=== PATIENT | male | born 2000 | race Caucasian/White ===

== ENCOUNTER 2019-09-22 00:04 | Emergency (ER) | payer OTHER ==
[2019-09-22] MEDS ORDERED: ONDANSETRON HCL INJ/PF 4 MG/2 ML SDV ONE (00:20)
[2019-09-22] MEDS ORDERED: NORMAL SALINE 1000 ML 1,000 ML IV ONE (00:29)
[2019-09-22] MEDS ORDERED: ONDANSETRON HCL INJ/PF 4 MG/2 ML SDV IV ONE (00:29)
--- NOTE | 2019-09-22 00:31 | ER Document Report ---
ED General - General Stated Complaint: ETOH Time Seen by Provider: 09/22/19 00:24 Notes: Patient is a 29-year-old male that comes emergency department for chief complain t of alcohol intoxication and subsequent vomiting. Patient reportedly drinks one half of a bottle of liquor which was 100 proof, afterwards he vomited multiple times in the bathroom before EMS was called and patient was brought to the emergency department. Patient states he still feels slightly nauseated, he was given 4 mg of Zofran IV. He denies recreational drugs, he denies any prescribed any medications, he denies any past medical history. His is with him at bedside, sober, states that he did drink heavily but he does not use recreational drugs, he did not have any fall injury, she denies any symptoms other than him vomiting. Patient is cooperative and alert. - Related Data Allergies/Adverse Reactions: No Known Allergies Allergy (Verified 09/22/19 05:38) Past Medical History - General Information source: Patient, Relative - Social History Smoking Status: Never Smoker Frequency of alcohol use: Social Drug Abuse: None Lives with: Family Family History: Reviewed & Not Pertinent - Medical History Medical History: Negative Surgical Hx: Negative - Immunizations Immunizations up to date: Yes Hx Diphtheria, Pertussis, Tetanus Vaccination: Yes Review of Systems - Review of Systems Constitutional: No symptoms reported EENT: No symptoms reported Cardiovascular: No symptoms reported Respiratory: No symptoms reported Gastrointestinal: See HPI Genitourinary: No symptoms reported Male Genitourinary: No symptoms reported Musculoskeletal: No symptoms reported Skin: No symptoms reported Hematologic/Lymphatic: No symptoms reported Neurological/Psychological: See HPI Physical Exam - Vital signs Vitals: Pulse Resp BP Pulse Ox 79 16 104/69 100 09/22/19 00:36 09/22/19 00:36 09/22/19 00:36 09/22/19 00:36 - Notes Notes: GENERAL: Awake, appears intoxicated, sluggish, slurred words, laughing HEAD: Normocephalic, atraumatic. EYES: Pupils equal, round, and reactive to light. Extraocular movements intact. ENT: Oral mucosa dry, tongue midline. Oropharynx unremarkable. Airway patent. NECK: Full range of motion. Supple. Trachea midline. LUNGS: Clear to auscultation bilaterally, no wheezes, rales, or rhonchi. No respiratory distress. HEART: Regular rate and rhythm. No murmur ABDOMEN: Soft, non-tender. Non-distended. Bowel sounds present in all 4 quadra nts. GENITOURINARY: Deferred EXTREMITIES: Moves all 4 extremities spontaneously. No edema, normal radial and dorsalis pedis pulses bilaterally. No cyanosis. BACK: no cervical, thoracic, lumbar midline tenderness. No saddle anesthesia, normal distal neurovascular exam. Moves all extremities in full range of motion. NEUROLOGICAL: Alert and oriented x3. Normal speech. Cranial nerves II through XII grossly intact. PSYCH: Laughing silly mood SKIN: Slightly flushed Course - Re-evaluation Re-evalutation: Patient clearly intoxicated, slurring his words, laughing frequently. Unsteady on his feet. Abdomen is actually benign, physical examination is benign with no signs of trauma, vital signs unremarkable. BMP shows unremarkable glucose, shows low bicarbonate, patient being given IV fluids. He has been given Zofran. On reevaluation patient states he feels much better. He is still clinically intoxicated and unsteady however. He will be monitored until he is sober enough to ambulate without difficulty and be safe to discharge home. His states she will gladly come back for him when he is ready. Patient given famotidine p.o., tolerated this without any difficulty, tolerated fluids. - Vital Signs Vital signs: Temp Pulse Resp BP Pulse Ox 97.9 F 94 14 101/42 L 96 09/22/19 05:46 09/22/19 05:46 09/22/19 05:46 09/22/19 05:46 09/22/19 05:46 - Laboratory Result Diagrams: 09/22/19 00:30 Laboratory results interpreted by me: 09/22/19 00:30 Carbon Dioxide 17 L BUN 21 H Discharge - Discharge Clinical Impression: Dehydration Alcohol intoxication Qualifiers: Complication of substance-induced condition: with unspecified complication Qu alified Code(s): F10.929 - Alcohol use, unspecified with intoxication, unspecified Vomiting Qualifiers: Vomiting type: unspecified Vomiting Intractability: non-intractable Nausea presence: with nausea Qualified Code(s): R11.2 - Nausea with vomiting, unspecified Condition: Stable Disposition: HOME, SELF-CARE Additional Instructions: Avoid drinking alcohol to intoxication. Drink plenty of fluids, start with bland diet, take Zofran if needed for nausea, take famotidine as prescribed for the next several days. Follow-up with primary care. Return for any concerning symptoms including return vomiting, severe abdominal pain, vomiting blood, black stools, or any other concerning or worsening symptoms. Prescriptions: Famotidine [Pepcid 20 mg Tablet] 20 mg PO BID #12 tablet Ondansetron [Zofran Odt 4 mg Tablet] 1 - 2 tab PO Q4H PRN #15 tab.rapdis PRN Reason: For Nausea/Vomiting
[2019-09-22 00:57] LABS: BLOOD UREA NITROGEN 21 mg/dL (7-20); CALCIUM 9.3 mg/dL (8.4-10.2); GLUCOSE 82 mg/dL (75-110); POTASSIUM 3.8 mmol/L (3.6-5.0)
[2019-09-22 01:03] LABS: CARBON DIOXIDE 17 mmol/L (22-30); CHLORIDE 104 mmol/L (98-107)
[2019-09-22 01:07] LABS: ANION GAP 19 (5-19)
[2019-09-22] MEDS ORDERED: RINGERS SOLUTION,LACTATED 1,000 ML IV ONE (01:42)
[2019-09-22] MEDS: FAMOTIDINE 20 MG TABLET PO ONE ×3 (02:33→04:12)
[2019-09-22 08:40] VITALS: BP 132/62
== END 2019-09-22 08:39 | disposition home or self-care (01) ==
LOC: EDBD 00:04 → ER 00:04
DX: E86.0 Dehydration (principal); F10.929 Alcohol use, unspecified with intoxication, unspecified; R11.2 Nausea with vomiting, unspecified
CPT/HCPCS: 99284; 96361; 96374; 36415; 80048; J2405; J7030; J7120